=== PATIENT | female | born 2000 | race Caucasian/White ===

== ENCOUNTER 2020-10-22 19:20 | Emergency (ER) | payer OTHER ==
[2020-10-22 19:43] VITALS: BP 121/75; PULSE 65; RESP 18; TEMP 98.2
--- NOTE | 2020-10-22 20:24 | ED ---
Recheck HPI - General Chief Complaint: Recheck/Abnormal Lab/Rx Stated Complaint: COVID test Time Seen by Provider: 10/22/20 20:18 Source: patient Mode of arrival: ambulatory Limitations: no limitations - History of Present Illness Initial Comments: 20 year-old female patient presents for COVID test in order to cross border into [place]. Denies any known exposures or any current symptoms. Denies need for further evalution. No other complaints. - Related Data Allergies Allergy/AdvReac Type Severity Reaction Status Date / Time No Known Allergies Allergy Verified 10/22/20 19:40 Review of Systems ROS Statement: Those systems with pertinent positive or pertinent negative responses have been documented in the HPI. ROS Other: All systems not noted in ROS Statement are negative. Past Medical History Past Medical History: No Reported History History of Any Multi-Drug Resistant Organisms: None Reported Past Surgical History: No Surgical Hx Reported Past Psychological History: No Psychological Hx Reported Smoking Status: Never smoker Past Alcohol Use History: Occasional Past Drug Use History: None Reported General Exam Limitations: no limitations General appearance: alert, in no apparent distress Neurological exam: Present: alert, oriented X3 Psychiatric exam: Present: normal affect, normal mood Skin exam: Present: warm, dry, intact, normal color Course Vital Signs 10/22/20 19:40 Temperature 98.2 F Pulse Rate 65 Respiratory 18 Rate Blood Pressure 121/75 O2 Sat by Pulse 100 Oximetry Medical Decision Making - Medical Decision Making 20-year-old female patient presents the emergency department today for COVID testing in order to cross border into [place]. No symptoms. Declines any other needs. Test result was negative, she was provided with results. Case discussed with my attending Dr. Hinton. - Lab Data Lab Results 10/22/20 Range/Units 19:47 Coronavirus (PCR) Not Detected (Not Detectd) Disposition Clinical Impression: Encounter for screening laboratory testing for COVID-19 virus Disposition: HOME SELF-CARE Condition: Good Instructions (If sedation given, give patient instructions): Coronavirus Disease 2019 (COVID-19) Is patient prescribed a controlled substance at d/c from ED?: No Referrals: None,Stated [Primary Care Provider] - 1-2 days Time of Disposition: 20:24
== END 2020-10-22 20:52 | disposition home or self-care (01) ==
LOC: EC 19:20
DX: Z20.822 Contact with and (suspected) exposure to COVID-19 (principal)
CPT/HCPCS: 87635; 99282